=== PATIENT | female | born 1990 | race African-American/Black ===

== ENCOUNTER 2016-09-08 20:22 | Emergency (ER) | payer OTHER ==
[~2016-09-08 20:22] MED LIST: BACTRIM DS TABL1 TAB PO; DOXYCYCLINE PO; FLEXERIL10 M1 PO; KETOPROFEN PO; MACROBID 100 M100 MG PO; MACROBID100 MG PO; NORVASC PO; PHENERGAN PO; PRENATAL1 TA1 PO; TRAVEL MOTION S25 MG PO; UNKNOWN BP PILL; VICODIN 5/500 T1 TAB PO; VOLTAREN75 MG PO; WATER PILL; ZOFRAN ODT4 MG PO
== END 2016-09-08 22:17 | disposition home or self-care (01) ==
LOC: CED 20:22 → CFTX 20:22
DX: J02.0 Streptococcal pharyngitis (principal); Z76.0 Encounter for issue of repeat prescription; I10 Essential (primary) hypertension
CPT/HCPCS: 87880; 96372; 99283; J0561; J1100